=== PATIENT | male | born 1995 | race Caucasian/White ===

== ENCOUNTER 2016-09-23 19:03 | Emergency (ER) | payer BC ==
[2016-09-23 19:48] VITALS: BP 133/87
[2016-09-23] MEDS ORDERED: Ibuprofen TAB* 600 MG PO ONE (19:51)
--- NOTE | 2016-09-23 20:11 | UC ---
Ear Complaint HPI - HPI Summary HPI Summary: Woke with R ear pain two mornings ago. Denies recent or current ST, nasal congestion, cough, or fever. Having trouble hearing out of R ear. Tried using swab and ear syringe to clean out canal without relief. - History of Current Complaint Chief Complaint: UCEar Stated Complaint: EAR ACHE Time Seen by Provider: 09/23/16 19:51 Hx Obtained From: Patient Onset/Duration: Sudden Onset, Lasting Days Severity Initially: Mild Severity Currently: Mild Aggravating Factors: Nothing Associated Signs/Symptoms: Positive: Hearing Loss. Negative: Trauma to Ear, Swelling @, URI Symptoms - Allergies/Home Medications Allergies/Adverse Reactions: Allergies Allergy/AdvReac Type Severity Reaction Status Date / Time No Known Allergies Allergy Verified 09/23/16 19:49 Home Medications: Home Medications NK [No Home Medications Reported] 09/23/16 [History Confirmed 09/23/16] PMH/Surg Hx/FS Hx/Imm Hx Previously Healthy: Yes - Surgical History Surgical History: Yes Surgery Procedure, Year, and Place: Behind right ear, fat build up. Benign - Family History Known Family History: Positive: Hypertension - Social History Occupation: Employed Full-time Alcohol Use: Occasionally Substance Use Type: None Smoking Status (MU): Light Every Day Tobacco Smoker Type: Cigarettes Have You Smoked in the Last Year: Yes When Did the Patient Quit Smoking/Using Tobacco: 5-6 cigs per day Household Exposure Type: Cigarettes Review of Systems Constitutional: Negative Skin: Negative Eyes: Negative ENT: Ear Ache Respiratory: Negative Cardiovascular: Negative Gastrointestinal: Negative Genitourinary: Negative Motor: Negative Neurovascular: Negative Musculoskeletal: Negative Neurological: Negative Psychological: Negative All Other Systems Reviewed And Are Negative: Yes Physical Exam Triage Information Reviewed: Yes Appearance: Well-Appearing, No Pain Distress, Well-Nourished Vital Signs: Initial Vital Signs Temp 100.3 F 09/23/16 19:43 Pulse 70 09/23/16 19:43 Resp 18 09/23/16 19:43 BP 133/87 09/23/16 19:43 Pulse Ox 100 09/23/16 19:43 Vital Signs Reviewed: Yes Eye Exam: Normal Eyes: Positive: Conjunctiva Clear ENT: Positive: Pharynx normal, TMs normal - post-flush, Other: - R cerumen impaction. Negative: Pharyngeal erythema, Nasal congestion, TM bulging, TM dull , TM red Dental Exam: Normal Neck exam: Normal Neck: Positive: Supple, Nontender, No Lymphadenopathy Respiratory Exam: Normal Respiratory: Positive: Chest non-tender, Lungs clear, Normal breath sounds, No respiratory distress, No accessory muscle use Cardiovascular Exam: Normal Cardiovascular: Positive: RRR, No Murmur, Pulses Normal Musculoskeletal Exam: Normal Neurological Exam: Normal Psychological Exam: Normal Skin Exam: Normal - Additional Comments Temperature noted to be 100.3, however pt is still wearing stocking cap in exam room, and does not feel feverish. Asked pt to remove hat for recheck after several minutes. Ear Complaint Course/Dx - Differential Dx/Diagnosis Provider Diagnoses: R cerumen impaction Discharge - Discharge Plan Condition: Stable Disposition: HOME Patient Education Materials: Cerumen Impaction (ED)
== END 2016-09-23 21:00 | disposition home or self-care (01) ==
LOC: UCEAST 19:03
DX: H61.21 Impacted cerumen, right ear (principal); F17.210 Nicotine dependence, cigarettes, uncomplicated
CPT/HCPCS: 99203; A9270-GY; G0463